=== PATIENT | male | born 1970 | race Caucasian/White ===

== ENCOUNTER 2019-12-20 11:57 | Observation (INO) | payer OTHER ==
[2019-12-20] MEDS ORDERED: LORAZEPAM INJ 2 MG/1 ML VIAL IV ONE ×3 (12:31→12:46)
[2019-12-20] MEDS ORDERED: LORAZEPAM INJ 2 MG/1 ML VIAL IM ONE ×3 (12:37→13:10)
[2019-12-20] MEDS ORDERED: LEVETIRACETAM 1000 MG/NACL-ISO 1,000 MG/100 ML RTUPB IV ONE (12:46)
[2019-12-20] MEDS ORDERED: HALOPERIDOL LACTATE INJ 5 MG/1 ML VIAL IV ONE (12:49)
[2019-12-20] MEDS ORDERED: HALOPERIDOL LACTATE INJ 5 MG/1 ML VIAL ONE (12:50)
--- NOTE | 2019-12-20 13:05 | ER Document Report ---
ED Medical Screen (RME) - General Chief Complaint: Probable Seizure Stated Complaint: POSSIBLE SEIZURES Time Seen by Provider: 12/20/19 12:16 TRAVEL OUTSIDE OF THE [place] IN LAST 30 DAYS: No - HPI Notes: 12/20/19 49-year-old male to the emergency department with with complaints of possible seizures this morning. She states that about 830 this morning the patient began to groan in pain and then all of a sudden he started jerking throughout his entire body. She states that this lasted for several minutes and then he began to snore quite loudly and she tried to arouse him without success. She states that after that she called the medics and he was very combative and would not go with them. She states about 30 minutes after they left the patient had a second seizure. She states that he does not have history of seizure. He does have a chronic demyelinating disease for which he is seeing neurology. He is she states that he is not on any current new medications. She states that he has never had a seizure disorder in the past. She states that he does have moments of "spacing out" and that is been going on for the past year. Patient states he does not really remember anything that happened this morning and thought maybe he was just having a bad dream. He denies any chest pain, s hortness of breath, abdominal pain. I was informed that patient would be going to bed 9. I was wheeling the patient to bed 9 when he started to have an episode of what looked like an absence seizure and as soon as we got into the room he had a full tonic-clonic seizure. I requested a verbal order of 1 mg of Ativan which was given to the patient I am in the right deltoid muscle. Patient calmed down briefly enough for myself and nursing staff to transfer the patient to the bed and try to establish IV access. He began to have what looked like another episode of a seizure and a second milligram of Ativan was verbally ordered and given in the left thigh. At this point Dr. Stephens my ER attending joined us in the room and assumed care. I ordered 1/3 mg of Ativan and also 5 mg of Haldol per Dr. Stephens. We went ahead and decided to load the patient with 1 g of Keppra as well. Patient continues to be combative. Dr. Angelo to assume care at this point. - Related Data Allergies/Adverse Reactions: No Known Allergies Allergy (Unverified 12/20/19 12:15) Home Medications: Azathiprine, Prednison, Adrenaline, Diphenhydramine Physical Exam - Vital signs Vitals: Temp Pulse Resp BP Pulse Ox 97.6 F 86 18 153/73 H 96 12/20/19 12:14 12/20/19 12:14 12/20/19 12:14 12/20/19 12:14 12/20/19 12:14 Course - Vital Signs Vital signs: Temp Pulse Resp BP Pulse Ox 97.6 F 86 18 153/73 H 96 12/20/19 12:14 12/20/19 12:14 12/20/19 12:14 12/20/19 12:14 12/20/19 12:14 - Laboratory Result Diagrams: 12/20/19 12:40 12/20/19 12:40
[2019-12-20 13:09] LABS: HEMATOCRIT 45.9 % (37.9-51.0); HEMOGLOBIN 15.1 g/dL (13.5-17.0); MEAN CORPUSCULAR HEMOGLOBIN 31.9 pg (27.0-33.4); MEAN CORPUSCULAR VOLUME 97 fl (80-97); PLATELET COUNT 302 10^3/uL (150-450); RED BLOOD COUNT 4.74 10^6/uL (4.35-5.55); RED CELL DISTRIBUTION WIDTH 15.9 % (11.5-14.0); WHITE BLOOD COUNT 21.5 10^3/uL (4.0-10.5)
[2019-12-20 13:14] LABS: ALBUMIN 4.9 g/dL (3.5-5.0); ALKALINE PHOSPHATASE 95 U/L (38-126); ASPARTATE AMINO TRANSFERASE 53 U/L (17-59); BILIRUBIN,DIRECT 0.2 mg/dL (0.0-0.4); BILIRUBIN,TOTAL 0.6 mg/dL (0.2-1.3); BLOOD UREA NITROGEN 19 mg/dL (7-20); CALCIUM 10.2 mg/dL (8.4-10.2); GLUCOSE 117 mg/dL (75-110); POTASSIUM 3.3 mmol/L (3.6-5.0); TOTAL PROTEIN 8.8 g/dL (6.3-8.2)
[2019-12-20 13:19] LABS: CARBON DIOXIDE 18 mmol/L (22-30); CHLORIDE 94 mmol/L (98-107)
[2019-12-20 13:30] LABS: ANION GAP 27 (5-19)
[2019-12-20 13:46] LABS: ABSOLUTE LYMPHOCYTES# (MANUAL) 5.6 10^3/uL (0.5-4.7); ABSOLUTE MONOCYTES # (MANUAL) 1.5 10^3/uL (0.1-1.4); BASOPHILS % (MANUAL) 0 % (0-2); EOSINOPHILS % (MANUAL) 3 % (0-6); LYMPHOCYTES % (MANUAL) 26 % (13-45); MONOCYTES % (MANUAL) 7 % (3-13); NUCLEATED RED BLOOD CELLS 1 /100 WBC (0); SEGMENTED NEUTROPHILS % (MAN) 64 % (42-78); TOTAL CELLS COUNTED 100
[2019-12-20 13:47] LABS: ANISOCYTOSIS 1+; PLATELET CLUMPS PRESENT; PLATELET COMMENT ADEQUATE
[2019-12-20 14:48] LABS: APPEARANCE,URINE CLEAR; BILIRUBIN,URINE NEGATIVE (NEGATIVE); COLOR,URINE STRAW; GLUCOSE, URINE NEGATIVE (NEGATIVE); KETONES,URINE NEGATIVE (NEGATIVE); PROTEIN,URINE NEGATIVE (NEGATIVE); URINE SPECIFIC GRAVITY 1.013; UROBILINOGEN,URINE NEGATIVE mg/dL (<2.0)
[2019-12-20 14:54] LABS: URINE AMPHETAMINES SCREEN NEGATIVE; URINE BARBITURATES SCREEN NEGATIVE; URINE BENZODIAZEPINES SCREEN NEGATIVE; URINE COCAINE SCREEN NEGATIVE; URINE METHADONE SCREEN NEGATIVE; URINE PHENCYCLIDINE SCREEN NEGATIVE
[2019-12-20 15:01] LABS: URINE MARIJUANA (THC) SCREEN UNCONFIRMED POSITIVE
--- NOTE | 2019-12-20 15:01 | RADIOLOGY REPORT (SQ) ---
EXAM DESCRIPTION: CT HEAD WITHOUT COMPLETED DATE/TIME: 12/20/2019 2:46 pm REASON FOR STUDY: Seizure COMPARISON: None. TECHNIQUE: Axial images acquired through the brain without intravenous contrast. Images reviewed wi th bone, brain and subdural windows. Additional sagittal and coronal reconstructions were generated. Images stored on PACS. All CT scanners at this facility use dose modulation, iterative reconstruction, and/or weight based d osing when appropriate to reduce radiation dose to as low as reasonably achievable (ALARA). [facility]: Dose Right [facility]: CareDose [facility]: Dose Right [facility]: Teradose 4D [facility]: [employer]a RADIATION DOSE: CT Rad equipment meets quality standard of care and radiation dose reduction techniq ues were employed. CTDIvol: 53.2 mGy. DLP: 1017 mGy-cm. mGy. LIMITATIONS: None. FINDINGS: VENTRICLES: Normal size and contour. CEREBRUM: No masses. No hemorrhage. No midline shift. No evidence for acute infarction. Normal gra y/white matter differentiation. No areas of low density in the white matter. Empty sella. CEREBELLUM: No masses. No hemorrhage. No alteration of density. No evidence for acute infarction. EXTRAAXIAL SPACES: No fluid collections. No masses. ORBITS AND GLOBE: No intra- or extraconal masses. Normal contour of globe without masses. CALVARIUM: No fracture. PARANASAL SINUSES: No fluid or mucosal thickening. SOFT TISSUES: Small right occipital scalp contusion. OTHER: No other significant finding. IMPRESSION: Small right occipital scalp contusion. No acute intracranial findings or calvarial frac ture. EVIDENCE OF ACUTE STROKE: NO. COMMENT: Quality ID # [id number]: Final reports with documentation of one or more dose reduction techniques (e.g., Automated exposure control, adjustment of the mA and/or kV according to patient size, use of iterative reconstruction technique) TECHNICAL DOCUMENTATION: JOB ID: [id number] [employer]- All Rights Reserved Reading location - IP/workstation name: [email or web address]
--- NOTE | 2019-12-20 15:01 | RADIOLOGY REPORT (SQ) ---
EXAM DESCRIPTION: CHEST SINGLE VIEW COMPLETED DATE/TIME: 12/20/2019 2:46 pm REASON FOR STUDY: Seizure COMPARISON: None. EXAM PARAMETERS: NUMBER OF VIEWS: One view. TECHNIQUE: Single frontal radiographic view of the chest acquired. RADIATION DOSE: NA LIMITATIONS: None. FINDINGS: LUNGS AND PLEURA: No opacities, masses or pneumothorax. No pleural effusion. MEDIASTINUM AND HILAR STRUCTURES: No masses. Contour normal. HEART AND VASCULAR STRUCTURES: Heart normal in size. Normal vasculature. BONES: No acute findings. HARDWARE: None in the chest. OTHER: No other significant finding. IMPRESSION: No acute pulmonary findings. TECHNICAL DOCUMENTATION: JOB ID: [id number] [employer]- All Rights Reserved Reading location - IP/workstation name: [email or web address]
--- NOTE | 2019-12-20 15:42 | ER Document Report ---
ED Seizure - General Chief Complaint: Probable Seizure Stated Complaint: POSSIBLE SEIZURES Time Seen by Provider: 12/20/19 12:16 Notes: 49-year-old man presents to the emergency department with a history of seizure activity which began this morning. Apparently 2 episodes of seizure-like activity at home this morning and while in the emergency department a prolonged episode treated with a total of 3 mg of Lorazepam. Post seizure patient became very combative and unable to follow commands. Lorazepam dose was repeated and 5 mg of Haldol IV given. Patient continued to be combative had to be restrained by the staff in order to maintain his IVs and to keep him from injuring himself. Patient was placed in four-point locked restraint. Later he is improved and was taken out of the restraints, CT scan of the head was performed which rev ealed no intracranial lesion or hemorrhage. - Related Data Allergies/Adverse Reactions: No Known Allergies Allergy (Unverified 12/20/19 12:15) Home Medications: Azathiprine, Prednison, Adrenaline, Diphenhydramine Past Medical History - Social History Smoking Status: Unknown if Ever Smoked Family History: Reviewed & Not Pertinent Patient has suicidal ideation: No Patient has homicidal ideation: No Review of Systems - Review of Systems Notes: Constitutional: Negative for fever. HENT: Negative for sore throat. Eyes: Negative for visual changes. Cardiovascular: Negative for chest pain. Respiratory: Negative for shortness of breath. Gastrointestinal: Negative for abdominal pain, vomiting or diarrhea. Genitourinary: Negative for dysuria. Musculoskeletal: Negative for back pain. Skin: Negative for rash. Neurological: + Seizure, + post ictal combativeness 10 point ROS negative except as marked above and in HPI. Physical Exam - Vital signs Vitals: Temp Pulse Resp BP Pulse Ox 97.6 F 86 18 153/73 H 96 12/20/19 12:14 12/20/19 12:14 12/20/19 12:14 12/20/19 12:14 12/20/19 12:14 - Notes Notes: PHYSICAL EXAMINATION: Physical Exam: General: Well-nourished well-developed 49-year-old man in no acute distress HEENT: NC/AT, pupils equal round and reactive to light, MM moist,nares clear, oropharynx clear Neck: supple, no adenopathy, no masses. Lungs: clear, no wheezing, no rales no rhonchi CVS: Regular rate and rhythm no murmur gallop or rub Abdomen: Soft active nontender, no masses, no hepatosplenomegaly Ext: No edema clubbing or cyanosis. Neuro: Alert and responsive, moving all 4 extremities on command, cranial nerves intact. Speech normal (Post seizure) Skin: Intact no open lesions, no rash PSYCH: Normal mood, normal affect. Course - Re-evaluation Re-evalutation: 12/20/19 15:42 Patient was treated and IV Keppra begun at 1 g, new onset seizures versus escalating seizures given a history of "zoning out" episodes. I have discussed the findings with the hospitalist, Dr. Motta, he will admit the patient to the hospital for further evaluation and treatment. I discussed being admitted to the hospital with the patient's , she states that she would prefer to stay at [facility] and is in agreement with the plan. - Vital Signs Vital signs: Temp Pulse Resp BP Pulse Ox 97.7 F 78 18 153/73 H 100 12/23/19 10:44 12/23/19 10:44 12/23/19 10:44 12/23/19 10:44 12/23/19 10:44 - Laboratory Result Diagrams: 12/23/19 05:33 12/23/19 05:33 Laboratory results interpreted by me: 12/20/19 12/20/19 12/20/19 12:40 12:40 12:40 WBC 21.5 H RDW 15.9 H Abs Neuts (Manual) 13.8 H Abs Lymphs (Manual) 5.6 H Abs Monocytes (Manual) 1.5 H Potassium 3.3 L Chloride 94 L Carbon Dioxide 18 L Anion Gap 27 H Glucose 117 H Total Protein 8.8 H TSH Prolactin 28.6 H 12/20/19 12:40 WBC RDW Abs Neuts (Manual) Abs Lymphs (Manual) Abs Monocytes (Manual) Potassium Chloride Carbon Dioxide Anion Gap Glucose Total Protein TSH 15.10 H Prolactin Critical Care Note - Critical Care Note Total time excluding time spent on procedures (mins): 60 - Critical care time spent obtaining history from patient or surrogate, discussions with consultants, development of treatment plan with patient or surrogate, evaluation of patient's response to treatment, examination of patient, ordering and performing treatments and interventions, ordering and review of laboratory studies, re- evaluation of patient's condition, ordering and review of radiographic studies and review of old charts Discharge - Discharge Clinical Impression: New onset seizure, Demyelinating disease, CIDP (chronic inflammatory demyelinating polyneuropathy) HTN (hypertension) Qualifiers: Hypertension type: essential hypertension Qualified Code(s): I10 - Essential (primary) hypertension Condition: Stable Disposition: ADMITTED INPATIENT Admitting Provider: Ángela (Hospitalist) - Seizure disorder IMCU on telemetry Unit Admitted: IMCU - thank you
--- NOTE | 2019-12-20 16:00 | EKG REPORT ---
SEVERITY:- OTHERWISE NORMAL ECG - SINUS TACHYCARDIA : Confirmed by: Jorge Herr MD 20-Dec-2019 15:59:43
[2019-12-20] MEDS ORDERED: LORAZEPAM INJ 2 MG/1 ML VIAL IV PRN (16:10)
[2019-12-20] MEDS: POTASSI CL 20 MEQ/50 ML RIDER 20 MEQ/50 ML RTUPB IV SCH ×2 (16:41→18:12)
--- NOTE | 2019-12-20 17:05 | PDOC H&P ---
History of Present Illness Admission Date/PCP: 12/20/19 16:11 Patient complains of: Seizures History of Present Illness: TOY WILLIAMSON is a 49 year old male who has history of hypertension, hypothyroidism, CIDP who follows with his neurologist outpatient. Patient presented with tonic-clonic seizure that occurred at home. In the emergency room he had another recurrence of tonic-clonic seizure. After that he was delirious and agitated and required restraint. He received 3 mg total of IV Ativan and 5 mg of IV Haldol. He also received 1000 mg of Keppra IV. He is currently awake but slightly sedated. In no acute respiratory distress. Reports of incontinence or tongue biting or head trauma. Patient does not recall the events. Past Medical History Cardiac Medical History: Reports: Hypertension Neurological History Note: CIDP Endocrine Medical History: Reports: Hypothyroidism Social History Smoking Status: Unknown if Ever Smoked Family History Family History: None Parental Family History Reviewed: Yes Children Family History Reviewed: Yes Sibling(s) Family History Reviewed.: Yes Medication/Allergy Allergies/Adverse Reactions: No Known Allergies Allergy (Unverified 12/20/19 12:15) Physical Exam Vital Signs: Temp Pulse Resp BP Pulse Ox 99.0 F 86 16 123/82 91 L 12/20/19 14:05 12/20/19 12:14 12/20/19 16:01 12/20/19 16:01 12/20/19 16:01 Intake & Output 12/19/19 12/20/19 12/21/19 06:59 06:59 06:59 Intake Total 100 Balance 100 Weight 218 lb 11.177 oz Exam: Patient is no acute distress Alert oriented to time place person No anxiety or depression Head: atraumatic normocephalic Pupils: are equal reactive Neck: is supple and trachea is central no lymphadenopathy No pharyngeal erythema or exudates Heart: Regular rate and rhythm, no peripheral edema Lungs: clear to auscultation, no respiratory distress Abdomen: nontender nondistended Neurological exam: Slightly sedated. No focal deficits. Musculoskeletal: No joint swelling or effusion chronic lower back pain and tenderness No suicidal or homicidal ideation Results Laboratory Results: 12/20/19 12:40 12/20/19 12:40 12/20/19 12/20/19 12/20/19 12:40 12:40 14:03 WBC 21.5 H RBC 4.74 Hgb 15.1 Hct 45.9 MCV 97 MCH 31.9 MCHC 33.0 RDW 15.9 H Plt Count 302 Seg Neutrophils % Not Reportable Sodium 139.3 Potassium 3.3 L Chloride 94 L Carbon Dioxide 18 L Anion Gap 27 H BUN 19 Creatinine 1.19 Est GFR ( Amer) > 60 Glucose 117 H Calcium 10.2 Magnesium 2.3 Total Bilirubin 0.6 AST 53 Alkaline Phosphatase 95 Total Protein 8.8 H Albumin 4.9 Urine Color STRAW Urine Appearance CLEAR Urine pH 6.0 Ur Specific [place] 1.013 Urine Protein NEGATIVE Urine Glucose (UA) NEGATIVE Urine Ketones NEGATIVE Urine Blood NEGATIVE Urine RBC (Auto) 0 12/20/19 12:40 Troponin I 0.036 Impressions: Head CT 12/20/19 14:30 IMPRESSION: Small right occipital scalp contusion. No acute intracranial findings or calvarial fracture. EVIDENCE OF ACUTE STROKE: NO. Chest X-Ray 12/20/19 14:31 IMPRESSION: No acute pulmonary findings. Assessment and Plan - Diagnosis (1) New onset seizure Is this a current diagnosis for this admission?: Yes Plan: Admit for observation. Check EEG. MRI of the brain. Alcohol levels. Prolactin levels. start keppra. prn ativan. (2) HTN (hypertension) Is this a current diagnosis for this admission?: Yes Plan: resume home meds. monitor BP (3) Hypothyroidism Is this a current diagnosis for this admission?: Yes Plan: resume home meds. check TSH (4) CIDP (chronic inflammatory demyelinating polyneuropathy) Is this a current diagnosis for this admission?: Yes Plan: follows up with neurology outpatient
[2019-12-20] MEDS: NORMAL SALINE 1000 ML 1,000 ML IV PRN (18:12)
[2019-12-20] MEDS: LEVETIRACETAM 500 MG TABLET PO SCH (18:12)
[2019-12-21] MEDS: ACETAMINOPHEN 325 MG TABLET PO PRN ×2 (03:45→09:49)
[2019-12-21] MEDS: NORMAL SALINE 1000 ML 1,000 ML IV PRN ×2 (04:13→17:04)
[2019-12-21 06:58] LABS: ANION GAP 7 (5-19); BLOOD UREA NITROGEN 15 mg/dL (7-20); CALCIUM 8.7 mg/dL (8.4-10.2); CARBON DIOXIDE 27 mmol/L (22-30); CHLORIDE 93 mmol/L (98-107); GLUCOSE 102 mg/dL (75-110); POTASSIUM 3.4 mmol/L (3.6-5.0)
[2019-12-21 08:47] LABS: HEMATOCRIT 37.1 % (37.9-51.0); MEAN CORPUSCULAR HEMOGLOBIN 32.2 pg (27.0-33.4); MEAN CORPUSCULAR HGB CONC 35.1 g/dL (32.0-36.0); PLATELET COUNT 181 10^3/uL (150-450); RED BLOOD COUNT 4.03 10^6/uL (4.35-5.55); RED CELL DISTRIBUTION WIDTH 15.8 % (11.5-14.0); WHITE BLOOD COUNT 10.1 10^3/uL (4.0-10.5)
[2019-12-21 08:52] LABS: MEAN CORPUSCULAR VOLUME 92 fl (80-97)
[2019-12-21] MEDS: LEVETIRACETAM 500 MG TABLET PO SCH ×2 (09:49→17:04)
[2019-12-21] MEDS ORDERED: ONDANSETRON HCL INJ/PF 4 MG/2 ML SDV IV PRN (11:00)
[2019-12-21] MEDS ORDERED: ALPRAZOLAM 0.25 MG TABLET PO PRN (12:11)
[2019-12-21] MEDS ORDERED: LOSARTAN PO SCH (12:16)
[2019-12-21] MEDS ORDERED: HYDROCHLOROTHIAZIDE PO SCH (12:16)
[2019-12-21] MEDS ORDERED: [UNRECOGNIZED DRUG - OTHER] PO SCH (12:16)
--- NOTE | 2019-12-21 12:20 | PDOC PROGRESS REPORT ---
Subjective Progress Note for:: 12/21/19 Subjective:: 12/21/2019: Patient was seen and examined. Has not had any seizures since admission. He is awake and alert and oriented. Slightly sleepy probably from Keppra. MRI is still pending. Reason For Visit: SEIZURE Physical Exam Vital Signs: Temp Pulse Resp BP Pulse Ox 97.6 F 79 17 142/92 H 97 12/21/19 07:07 12/21/19 07:07 12/21/19 07:07 12/21/19 07:07 12/21/19 07:07 Intake & Output 12/20/19 12/21/19 12/22/19 06:59 06:59 06:59 Intake Total 1625 Output Total 100 Balance 1525 Weight 218 lb 11.177 oz Exam: Patient is no acute distress Alert oriented to time place person No anxiety or depression Head: atraumatic normocephalic Pupils: are equal reactive Neck: is supple and trachea is central no lymphadenopathy No pharyngeal erythema or exudates Heart: Regular rate and rhythm, no peripheral edema Lungs: clear to auscultation, no respiratory distress Abdomen: nontender nondistended Neurological exam: Slightly sedated. No focal deficits. Musculoskeletal: No joint swelling or effusion chronic lower back pain and tenderness No suicidal or homicidal ideation Results Laboratory Results: 12/21/19 08:30 12/21/19 06:00 12/20/19 12/20/19 12/20/19 12:40 12:40 12:40 WBC 21.5 H RBC 4.74 Hgb 15.1 Hct 45.9 MCV 97 MCH 31.9 MCHC 33.0 RDW 15.9 H Plt Count 302 Seg Neutrophils % Not Reportable Sodium 139.3 Cancelled Potassium 3.3 L Cancelled Chloride 94 L Cancelled Carbon Dioxide 18 L Cancelled Anion Gap 27 H Cancelled BUN 19 Cancelled Creatinine 1.19 Cancelled Est GFR ( Amer) > 60 Cancelled Est GFR (Non-Af Amer) Cancelled Glucose 117 H Cancelled Serum Osmolality Calcium 10.2 Cancelled Magnesium 2.3 Total Bilirubin 0.6 AST 53 Alkaline Phosphatase 95 Total Protein 8.8 H Albumin 4.9 TSH Urine Color Urine Appearance Urine pH Ur Specific [place] Urine Protein Urine Glucose (UA) Urine Ketones Urine Blood Urine RBC (Auto) Urine Osmolality 12/20/19 12/20/19 12/20/19 12:40 14:03 14:03 WBC RBC Hgb Hct MCV MCH MCHC RDW Plt Count Seg Neutrophils % Sodium Potassium Chloride Carbon Dioxide Anion Gap BUN Creatinine Est GFR ( Amer) Est GFR (Non-Af Amer) Glucose Serum Osmolality Calcium Magnesium Total Bilirubin AST Alkaline Phosphatase Total Protein Albumin TSH 15.10 H Urine Color STRAW Urine Appearance CLEAR Urine pH 6.0 Ur Specific [place] 1.013 Urine Protein NEGATIVE Urine Glucose (UA) NEGATIVE Urine Ketones NEGATIVE Urine Blood NEGATIVE Urine RBC (Auto) 0 Urine Osmolality 626 12/21/19 12/21/19 12/21/19 06:00 06:00 06:00 WBC Cancelled RBC Cancelled Hgb Cancelled Hct Cancelled MCV Cancelled MCH Cancelled MCHC Cancelled RDW Cancelled Plt Count Cancelled Seg Neutrophils % Sodium 127.1 L Potassium 3.4 L Chloride 93 L Carbon Dioxide 27 Anion Gap 7 BUN 15 Creatinine 0.71 Est GFR ( Amer) > 60 Est GFR (Non-Af Amer) Glucose 102 Serum Osmolality 261 L Calcium 8.7 Magnesium Total Bilirubin AST Alkaline Phosphatase Total Protein Albumin TSH Urine Color Urine Appearance Urine pH Ur Specific [place] Urine Protein Urine Glucose (UA) Urine Ketones Urine Blood Urine RBC (Auto) Urine Osmolality 12/21/19 08:30 WBC 10.1 RBC 4.03 L Hgb 13.0 L D Hct 37.1 L MCV 92 D MCH 32.2 MCHC 35.1 RDW 15.8 H Plt Count 181 Seg Neutrophils % Sodium Potassium Chloride Carbon Dioxide Anion Gap BUN Creatinine Est GFR ( Amer) Est GFR (Non-Af Amer) Glucose Serum Osmolality Calcium Magnesium Total Bilirubin AST Alkaline Phosphatase Total Protein Albumin TSH Urine Color Urine Appearance Urine pH Ur Specific [place] Urine Protein Urine Glucose (UA) Urine Ketones Urine Blood Urine RBC (Auto) Urine Osmolality 12/20/19 12:40 Troponin I 0.036 Impressions: Head CT 12/20/19 14:30 IMPRESSION: Small right occipital scalp contusion. No acute intracranial findings or calvarial fracture. EVIDENCE OF ACUTE STROKE: NO. Chest X-Ray 12/20/19 14:31 IMPRESSION: No acute pulmonary findings. Assessment and Plan - Diagnosis (1) New onset seizure Is this a current diagnosis for this admission?: Yes Plan: Apparently we cannot do EEG until December. Pending MRI of the brain. Continue Keppra. prn ativan. (2) HTN (hypertension) Is this a current diagnosis for this admission?: Yes Plan: resume home meds. monitor BP (3) Hypothyroidism Is this a current diagnosis for this admission?: Yes Plan: TSH 15.1. Will increase levothyroxine dose. (4) CIDP (chronic inflammatory demyelinating polyneuropathy) Is this a current diagnosis for this admission?: Yes Plan: follows up with neurology outpatient. Continue prednisone. Receives IVIG outpatient.
[2019-12-21] MEDS: AZATHIOPRINE 50 MG TABLET PO SCH (13:04)
[2019-12-21] MEDS: PREDNISONE 10 MG TABLET PO SCH (13:04)
[2019-12-21] MEDS: AMLODIPINE BESYLATE 5 MG TABLET PO SCH (13:05)
[2019-12-21] MEDS: LEVOTHYROXINE SODIUM 0.1 MG TABLET PO SCH (13:05)
--- NOTE | 2019-12-21 14:42 | RADIOLOGY REPORT (SQ) ---
EXAM DESCRIPTION: MRI HEAD COMBO COMPLETED DATE/TIME: 12/21/2019 2:22 pm REASON FOR STUDY: seizure COMPARISON: CT brain dated 12/20/2019 TECHNIQUE: Multiplanar imaging includes noncontrasted T1, T2, FLAIR, diffusion with ADC map and post gadolinium contrast T1 sequences. Images stored on PACS. CONTRAST TYPE AND DOSE: 20 mL Dotarem. RENAL FUNCTION: Not indicated. ACR Type II contrast agent associated with few, if any, unconfounded cases of NSF LIMITATIONS: None. FINDINGS: ANATOMY: No anomalies. Normal vascular flow voids. Pituitary fossa normal. CSF SPACES: Normal in size and contour. No hemorrhage. CEREBRUM: Sulci and gyri normal in size and contour. Normal white matter signal on FLAIR imaging. No evidence of hemorrhage, mass, or extraaxial fluid collection. No abnormal enhancement post contrast. POSTERIOR FOSSA: No signal alteration. No hemorrhage. No edema, masses, or mass effect. Internal margy tory canals, cerebellopontine angles, mastoids normal. No enhancing lesions. No abnormal enhancement post contrast. DIFFUSION IMAGING: Negative for acute or subacute infarction. ORBITS: No masses. Globes normal. PARANASAL SINUSES: No fluid levels. Mucosa normal. OTHER: No other significant finding. IMPRESSION: NORMAL MRI OF THE BRAIN WITHOUT AND WITH INTRAVENOUS GADOLINIUM CONTRAST. EVIDENCE OF ACUTE STROKE: NO. TECHNICAL DOCUMENTATION: JOB ID: [id number] [employer]- All Rights Reserved Reading location - IP/workstation name: [email or web address]
[2019-12-22] MEDS ORDERED: LEVOTHYROXINE SODIUM 0.1 MG TABLET PO SCH ×2 (06:00)
[2019-12-22] MEDS: LEVOTHYROXINE SODIUM 0.1 MG TABLET PO SCH (06:44)
[2019-12-22 09:46] LABS: ANION GAP 10 (5-19); BLOOD UREA NITROGEN 9 mg/dL (7-20); CALCIUM 9.3 mg/dL (8.4-10.2); CARBON DIOXIDE 25 mmol/L (22-30); CHLORIDE 97 mmol/L (98-107); GLUCOSE 136 mg/dL (75-110); POTASSIUM 3.7 mmol/L (3.6-5.0)
[2019-12-22] MEDS ORDERED: AZATHIOPRINE 50 MG TABLET PO SCH (10:00)
[2019-12-22] MEDS ORDERED: PREDNISONE 10 MG TABLET PO SCH (10:00)
[2019-12-22] MEDS ORDERED: LOSARTAN PO SCH (10:00)
[2019-12-22] MEDS ORDERED: AMLODIPINE BESYLATE 5 MG TABLET PO SCH (10:00)
[2019-12-22] MEDS ORDERED: HYDROCHLOROTHIAZIDE PO SCH (10:00)
[2019-12-22] MEDS ORDERED: [UNRECOGNIZED DRUG - OTHER] PO SCH (10:00)
[2019-12-22] MEDS: AMLODIPINE BESYLATE 5 MG TABLET PO SCH (10:14)
[2019-12-22] MEDS: PREDNISONE 10 MG TABLET PO SCH (10:14)
[2019-12-22] MEDS: LEVETIRACETAM 500 MG TABLET PO SCH ×2 (10:15→18:53)
[2019-12-22] MEDS: LOSARTAN POTASSIUM 50 MG TABLET PO SCH (10:15)
[2019-12-22] MEDS: AZATHIOPRINE 50 MG TABLET PO SCH (10:20)
--- NOTE | 2019-12-22 14:57 | PDOC PROGRESS REPORT ---
Subjective Progress Note for:: 12/22/19 Subjective:: TOY WILLIAMSON is a 49 year old male who has history of hypertension, hypothyroidism, CIDP who follows with his neurologist outpatient. Patient presented with tonic-clonic seizure that occurred at home. In the emergency room he had another recurrence of tonic-clonic seizure. After that he was delirious and agitated and required restraint. He received 3 mg total of IV Ativan and 5 mg of IV Haldol. He also received 1000 mg of Keppra IV. He is currently awake but slightly sedated. In no acute respiratory distress. Reports of incontinence or tongue biting or head trauma. Patient does not recall the events. 12/14/2019. No acute events overnight. Patient has not had any recurrence of his seizures since admission. Complaining of right upper and left lower extremity chronic persistent numbness and weakness, denies any fever, chills, nausea, vomiting, diarrhea, constipation or any urinary symptoms. P.o. tolerant. Having normal bowel and bladder movement. Reason For Visit: SEIZURE Physical Exam Vital Signs: Temp Pulse Resp BP Pulse Ox 97.5 F 73 16 136/82 H 98 12/22/19 11:50 12/22/19 11:50 12/22/19 11:50 12/22/19 11:50 12/22/19 11:50 Intake & Output 12/21/19 12/22/19 12/23/19 06:59 06:59 06:59 Intake Total 1625 1300 Output Total 100 1500 Balance 1525 -200 Weight 99.2 kg 100.8 kg General appearance: PRESENT: no acute distress, well-developed, well-nourished Head exam: PRESENT: atraumatic, normocephalic Respiratory exam: PRESENT: clear to auscultation marianne. ABSENT: rales, rhonchi, wheezes GI/Abdominal exam: PRESENT: normal bowel sounds, soft. ABSENT: distended, guarding, mass, organolmegaly, rebound, tenderness Neurological exam: PRESENT: alert, awake, oriented to person, oriented to place, oriented to time, oriented to situation, CN II-XII grossly intact, motor sensory deficit - Right upper and left lower extremity strength 3/4. Results Laboratory Results: 12/21/19 08:30 12/22/19 09:04 12/22/19 09:04 Sodium 131.8 L Potassium 3.7 Chloride 97 L Carbon Dioxide 25 Anion Gap 10 BUN 9 Creatinine 0.68 Est GFR ( Amer) > 60 Glucose 136 H Calcium 9.3 12/20/19 12:40 Troponin I 0.036 Impressions: Head CT 12/20/19 14:30 IMPRESSION: Small right occipital scalp contusion. No acute intracranial findings or calvarial fracture. EVIDENCE OF ACUTE STROKE: NO. Chest X-Ray 12/20/19 14:31 IMPRESSION: No acute pulmonary findings. Head MRI 12/21/19 00:00 IMPRESSION: NORMAL MRI OF THE BRAIN WITHOUT AND WITH INTRAVENOUS GADOLINIUM CONTRAST. EVIDENCE OF ACUTE STROKE: NO. Assessment and Plan - Diagnosis (1) New onset seizure Is this a current diagnosis for this admission?: Yes Plan: Not sure if this was due to electrolyte imbalance caused by HCTZ intake. MRI negative for acute any acute changes. No EEG available until December 2019. No seizure recurrence. Continue Keppra, monitor electrolytes and replace as needed continue seizure, fall and aspiration precaution. (2) CIDP (chronic inflammatory demyelinating polyneuropathy) Is this a current diagnosis for this admission?: Yes Plan: On chronic p.o. prednisone and IVIG q. 4 weeks. Followed by neurologist as outpatient. Complaining of persistent right upper and left lower extremity numbness and weakness. Continue IVIG, continue steroids, continue seizure, fall and aspiration precautions, outpatient neurology follow-up. (3) HTN (hypertension) Is this a current diagnosis for this admission?: Yes Plan: Normotensive. Euvolemic. Takes HCTZ losartan and amlodipine at home. DC HCTZ due to hyponatremia. Increase losartan 100 mg p.o. daily. Continue home dose of amlodipine. (4) Hypothyroidism Is this a current diagnosis for this admission?: Yes Plan: TSH 15.1. Will increase levothyroxine dose. (5) Hyponatremia Is this a current diagnosis for this admission?: Yes Plan: This is likely due to HCTZ intake. Urine sodium 242, urine osmolarity 626. DC HCTZ. Continue NS IV fluids, BMP daily.
[2019-12-22] MEDS ORDERED: IMMUNE GLOB,GAM CAPRYLATE(IGG) 20 GM in CONTAINER,EMPTY 1 EACH IV PRN (15:29)
[2019-12-22] MEDS: ACETAMINOPHEN 325 MG TABLET PO PRN (22:14)
[2019-12-23] MEDS: LEVOTHYROXINE SODIUM 0.1 MG TABLET PO SCH (05:34)
[2019-12-23 06:21] LABS: ABSOLUTE EOSINOPHILS # (AUTO) 0.1 10^3/uL (0.0-0.6); ABSOLUTE LYMPHOCYTES (AUTO) 1.3 10^3/uL (0.5-4.7); ABSOLUTE MONOCYTES (AUTO) 0.7 10^3/uL (0.1-1.4); ABSOLUTE NEUT (AUTO) 5.8 10^3/uL (1.7-8.2); BASOPHILS % (AUTO) 0.5 % (0-2); EOSINOPHILS % (AUTO) 0.7 % (0-6); HEMOGLOBIN 13.2 g/dL (13.5-17.0); LYMPHOCYTES % (AUTO) 16.9 % (13-45); MEAN CORPUSCULAR HEMOGLOBIN 32.7 pg (27.0-33.4); MEAN CORPUSCULAR HGB CONC 35.6 g/dL (32.0-36.0); MEAN CORPUSCULAR VOLUME 92 fl (80-97); PLATELET COUNT 205 10^3/uL (150-450); RED BLOOD COUNT 4.02 10^6/uL (4.35-5.55); RED CELL DISTRIBUTION WIDTH 15.7 % (11.5-14.0); SEGMENTED NEUTROPHILS % (AUTO) 72.9 % (42-78); TOTAL CELLS COUNTED % (AUTO) 100 %
[2019-12-23 06:47] LABS: ALBUMIN 3.6 g/dL (3.5-5.0); ALKALINE PHOSPHATASE 65 U/L (38-126); ANION GAP 9 (5-19); ASPARTATE AMINO TRANSFERASE 41 U/L (17-59); BILIRUBIN,DIRECT 0.4 mg/dL (0.0-0.4); BILIRUBIN,TOTAL 0.6 mg/dL (0.2-1.3); BLOOD UREA NITROGEN 16 mg/dL (7-20); CALCIUM 9.4 mg/dL (8.4-10.2); CARBON DIOXIDE 25 mmol/L (22-30); CHLORIDE 103 mmol/L (98-107); GLUCOSE 122 mg/dL (75-110); POTASSIUM 3.7 mmol/L (3.6-5.0); TOTAL PROTEIN 7.3 g/dL (6.3-8.2)
[2019-12-23 07:00] LABS: FREE T3 2.41 pg/mL (2.77-5.27); FREE T4 (FREE THYROXINE) 0.92 ng/dL (0.78-2.19)
[2019-12-23 07:14] LABS: THYROID STIMULATING HORMONE 5.84 uIU/mL (0.47-4.68)
[2019-12-23] MEDS: LOSARTAN POTASSIUM 50 MG TABLET PO SCH (10:14)
[2019-12-23] MEDS: PREDNISONE 10 MG TABLET PO SCH (10:15)
[2019-12-23] MEDS: AMLODIPINE BESYLATE 5 MG TABLET PO SCH (10:16)
[2019-12-23] MEDS: LEVETIRACETAM 500 MG TABLET PO SCH (10:17)
[2019-12-23] MEDS: AZATHIOPRINE 50 MG TABLET PO SCH (10:19)
[2019-12-23 10:45] VITALS: BP 153/73
--- NOTE | 2019-12-23 16:54 | PDOC DISCHARGE SUMMARY ---
Impression - Admit/DC Date/PCP Admission Date/Primary Care Provider: 12/20/19 16:11 Discharge Date: 12/23/19 - Discharge Diagnosis (1) New onset seizure Is this a current diagnosis for this admission?: Yes (2) CIDP (chronic inflammatory demyelinating polyneuropathy) Is this a current diagnosis for this admission?: Yes (3) HTN (hypertension) Is this a current diagnosis for this admission?: Yes (4) Hypothyroidism Is this a current diagnosis for this admission?: Yes (5) Hyponatremia Is this a current diagnosis for this admission?: Yes - Additional Information Discharge Diet: As Tolerated, Regular Discharge Activity: Activity As Tolerated, Balance Activity w/Rest Referrals: followup, oot [Other] Prescriptions: Losartan Potassium [Cozaar 50 mg Tablet] 50 mg PO BID 30 Days #60 tablet Levetiracetam [Keppra] 1,000 mg PO BID 30 Days #60 tablet Home Medications: Alprazolam [Xanax 0.25 mg Tablet] 0.25 mg PO Q12HP PRN 12/21/19 Amlodipine Besylate [Norvasc 5 mg Tablet] 5 mg PO DAILY 12/21/19 Azathioprine [Imuran 50 mg Tablet] 150 mg PO DAILY 12/21/19 Levothyroxine Sodium [Synthroid 0.1 mg Tablet] 0.1 mg PO Q6AM 12/21/19 Prednisone [Deltasone 10 mg Tablet] 30 mg PO DAILY 12/21/19 Levetiracetam [Keppra] 1,000 mg PO BID 30 Days #60 tablet 12/23/19 Losartan Potassium [Cozaar 50 mg Tablet] 50 mg PO BID 30 Days #60 tablet 12/23/19 History of Present Illiness History of Present Illness: TOY WILLIAMSON is a 49 year old male who has history of hypertension, hypothyroidism, CIDP who follows with his neurologist outpatient. Patient presented with tonic-clonic seizure that occurred at home. In the emergency room he had another recurrence of tonic-clonic seizure. After that he was delirious and agitated and required restraint. He received 3 mg total of IV Ativan and 5 mg of IV Haldol. He also received 1000 mg of Keppra IV. He is currently awake but slightly sedated. In no acute respiratory distress. Reports of incontinence or tongue biting or head trauma. Patient does not recall the events. Hospital Course Hospital Course: (1) New onset seizure Not sure if this was due to electrolyte imbalance caused by HCTZ intake. MRI negative for acute any acute changes. No EEG available until December 2019. No seizure recurrence while inpatient. Was admitted to [facility], tarted on ontinue Keppra, monitor electrolytes and replace as needed continue seizure, fall and aspiration precaution. Discharged on Keppra thousand milligrams p.o. twice daily. Was advised to follow-up with PCP and neurology for stable EEG. Patient was advised on routine CBC and CMP. (2) CIDP (chronic inflammatory demyelinating polyneuropathy) On chronic p.o. prednisone and IVIG q. 4 weeks. Followed by neurologist as outpatient. Complaining of persistent right upper and left lower extremity numbness and weakness. IVIG infusion while inpatient. Continued on steroids and azathioprine. Continue seizure, fall and aspiration precautions, outpatient neurology follow- up. (3) HTN (hypertension) Normotensive. Euvolemic. Takes HCTZ losartan and amlodipine at home. DCd HCTZ due to hyponatremia. Increase losartan 100 mg p.o. daily. Continued home dose of amlodipine. Was discharged on losartan 100 mg p.o. daily and amlodipine 5 mg p.o. daily. (4) Hypothyroidism TSH 15.1. Will increase levothyroxine dose. (5) Hyponatremia Resolved. Sodium 136 at time of discharge. This is likely due to HCTZ intake. Urine sodium 242, urine osmolarity 626. DCd HCTZ. Continued NS IV fluids, BMP daily. Physical Exam Vital Signs: Temp Pulse Resp BP Pulse Ox 97.7 F 78 18 153/73 H 100 12/23/19 10:44 12/23/19 10:44 12/23/19 10:44 12/23/19 10:44 12/23/19 10:44 Intake & Output 12/22/19 12/23/19 12/24/19 06:59 06:59 06:59 Intake Total 1300 1790 Output Total 1500 1600 Balance -200 190 Weight 100.8 kg 99.5 kg General appearance: PRESENT: no acute distress, well-developed, well-nourished Head exam: PRESENT: atraumatic, normocephalic Respiratory exam: PRESENT: clear to auscultation marianne. ABSENT: rales, rhonchi, wheezes Cardiovascular exam: PRESENT: RRR. ABSENT: diastolic murmur, rubs, systolic mu rmur GI/Abdominal exam: PRESENT: normal bowel sounds, soft. ABSENT: distended, guarding, mass, organolmegaly, rebound, tenderness Neurological exam: PRESENT: alert, awake, oriented to person, oriented to place, oriented to time, oriented to situation, CN II-XII grossly intact, motor sensory deficit - Right upper and left lower extremity weakness chronic. Results Laboratory Results: WBC 8.0 10^3/uL (4.0-10.5) 12/23/19 05:33 RBC 4.02 10^6/uL (4.35-5.55) L 12/23/19 05:33 Hgb 13.2 g/dL (13.5-17.0) L 12/23/19 05:33 Hct 37.0 % (37.9-51.0) L 12/23/19 05:33 MCV 92 fl (80-97) 12/23/19 05:33 MCH 32.7 pg (27.0-33.4) 12/23/19 05:33 MCHC 35.6 g/dL (32.0-36.0) 12/23/19 05:33 RDW 15.7 % (11.5-14.0) H 12/23/19 05:33 Plt Count 205 10^3/uL (150-450) 12/23/19 05:33 Lymph % (Auto) 16.9 % (13-45) 12/23/19 05:33 [place] % (Auto) 9.0 % (3-13) 12/23/19 05:33 Eos % (Auto) 0.7 % (0-6) 12/23/19 05:33 Baso % (Auto) 0.5 % (0-2) 12/23/19 05:33 Absolute Neuts (auto) 5.8 10^3/uL (1.7-8.2) 12/23/19 05:33 Absolute Lymphs (auto) 1.3 10^3/uL (0.5-4.7) 12/23/19 05:33 Absolute Monos (auto) 0.7 10^3/uL (0.1-1.4) 12/23/19 05:33 Absolute Eos (auto) 0.1 10^3/uL (0.0-0.6) 12/23/19 05:33 Absolute Basos (auto) 0.0 10^3/uL (0.0-0.2) 12/23/19 05:33 Total Counted 100 12/20/19 12:40 Seg Neutrophils % 72.9 % (42-78) 12/23/19 05:33 Seg Neuts % (Manual) 64 % (42-78) 12/20/19 12:40 Lymphocytes % (Manual) 26 % (13-45) 12/20/19 12:40 Monocytes % (Manual) 7 % (3-13) 12/20/19 12:40 Eosinophils % (Manual) 3 % (0-6) 12/20/19 12:40 Basophils % (Manual) 0 % (0-2) 12/20/19 12:40 Abs Neuts (Manual) 13.8 10^3/uL (1.7-8.2) H 12/20/19 12:40 Abs Lymphs (Manual) 5.6 10^3/uL (0.5-4.7) H 12/20/19 12:40 Abs Monocytes (Manual) 1.5 10^3/uL (0.1-1.4) H 12/20/19 12:40 Absolute Eos (Manual) 0.6 10^3/uL (0.0-0.6) 12/20/19 12:40 Abs Basophils (Manual) 0.0 10^3/uL (0.0-0.2) 12/20/19 12:40 Nucleated RBCs 1 /100 WBC (0) 12/20/19 12:40 Platelet Estimate Cancelled 12/21/19 06:00 Clumped Platelets PRESENT 12/20/19 12:40 Platelet Comment ADEQUATE 12/20/19 12:40 Anisocytosis 1+ 12/20/19 12:40 Sodium 136.7 mmol/L (137-145) L 12/23/19 05:33 Potassium 3.7 mmol/L (3.6-5.0) 12/23/19 05:33 Chloride 103 mmol/L (98-107) 12/23/19 05:33 Carbon Dioxide 25 mmol/L (22-30) 12/23/19 05:33 Anion Gap 9 (5-19) 12/23/19 05:33 BUN 16 mg/dL (7-20) 12/23/19 05:33 Creatinine 0.76 mg/dL (0.52-1.25) 12/23/19 05:33 Est GFR ( Amer) > 60 (>60) 12/23/19 05:33 Est GFR (Non-Af Amer) Cancelled 12/20/19 12:40 Est GFR (MDRD) Non-Af > 60 (>60) 12/23/19 05:33 Glucose 122 mg/dL (75-110) H 12/23/19 05:33 Serum Osmolality 261 mOsm/kg (275-301) L 12/21/19 06:00 Calcium 9.4 mg/dL (8.4-10.2) 12/23/19 05:33 Magnesium 2.3 mg/dL (1.6-2.3) 12/20/19 12:40 Total Bilirubin 0.6 mg/dL (0.2-1.3) 12/23/19 05:33 Direct Bilirubin 0.4 mg/dL (0.0-0.4) 12/23/19 05:33 Neonat Total Bilirubin Not Reportable 12/23/19 05:33 Neonat Direct Bilirubin Not Reportable 12/23/19 05:33 Neonat Indirect Bili Not Reportable 12/23/19 05:33 AST 41 U/L (17-59) 12/23/19 05:33 ALT 53 U/L (<50) 12/23/19 05:33 Alkaline Phosphatase 65 U/L (38-126) 12/23/19 05:33 Troponin I 0.036 ng/mL 12/20/19 12:40 Total Protein 7.3 g/dL (6.3-8.2) 12/23/19 05:33 Albumin 3.6 g/dL (3.5-5.0) 12/23/19 05:33 EGFR Cancelled 12/20/19 12:40 TSH 5.84 uIU/mL (0.47-4.68) H 12/23/19 05:33 Free T4 0.92 ng/dL (0.78-2.19) 12/23/19 05:33 Free T3 pg/mL 2.41 pg/mL (2.77-5.27) L 12/23/19 05:33 Prolactin 28.6 ng/mL (3.7-17.9) H 12/20/19 12:40 Urine Color STRAW 12/20/19 14:03 Urine Appearance CLEAR 12/20/19 14:03 Urine pH 6.0 (5.0-9.0) 12/20/19 14:03 Ur Specific [place] 1.013 12/20/19 14:03 Urine Protein NEGATIVE mg/dL (NEGATIVE) 12/20/19 14:03 Urine Glucose (UA) NEGATIVE mg/dL (NEGATIVE) 12/20/19 14:03 Urine Ketones NEGATIVE mg/dL (NEGATIVE) 12/20/19 14:03 Urine Blood NEGATIVE (NEGATIVE) 12/20/19 14:03 Urine Nitrite (Reflex) NEGATIVE (NEGATIVE) 12/20/19 14:03 Urine Bilirubin NEGATIVE (NEGATIVE) 12/20/19 14:03 Urine Urobilinogen NEGATIVE mg/dL (<2.0) 12/20/19 14:03 Leukocyte Esterase Rfl NEGATIVE (NEGATIVE) 12/20/19 14:03 Urine RBC (Auto) 0 /HPF 12/20/19 14:03 Urine WBC (Reflex) < 1 /HPF 12/20/19 14:03 Squamous Epi Cells Auto <1 /HPF 12/20/19 14:03 Urine Mucus (Auto) RARE /LPF 12/20/19 14:03 Urine Osmolality 626 mOsm/kg (300-900) 12/20/19 14:03 Urine Sodium 242 mmol/L (30-90) H 12/21/19 12:00 Urine Ascorbic Acid NEGATIVE (NEGATIVE) 12/20/19 14:03 Urine Opiates Screen NEGATIVE 12/20/19 14:03 Urine Methadone Screen NEGATIVE 12/20/19 14:03 Ur Barbiturates Screen NEGATIVE 12/20/19 14:03 Ur Phencyclidine Scrn NEGATIVE 12/20/19 14:03 Ur Amphetamines Screen NEGATIVE 12/20/19 14:03 U Benzodiazepines Scrn NEGATIVE 12/20/19 14:03 Urine Cocaine Screen NEGATIVE 12/20/19 14:03 U Marijuana (THC) Screen UNCONFIRMED POSITIVE 12/20/19 14:03 Serum Alcohol < 10 mg/dL (NONE DETECTED) 12/20/19 12:40 Slides for Path Review Cancelled 12/21/19 06:00 12/20/19 12:40 Troponin I 0.036 Impressions: Head CT 12/20/19 14:30 IMPRESSION: Small right occipital scalp contusion. No acute intracranial findings or calvarial fracture. EVIDENCE OF ACUTE STROKE: NO. Chest X-Ray 12/20/19 14:31 IMPRESSION: No acute pulmonary findings. Head MRI 12/21/19 00:00 IMPRESSION: NORMAL MRI OF THE BRAIN WITHOUT AND WITH INTRAVENOUS GADOLINIUM CONTRAST. EVIDENCE OF ACUTE STROKE: NO. Plan Goals: Patient has an appt. with neurologist in [place] Stroke Is this a Stroke Patient?: No Acute Heart Failure - Is this a Heart Failure Patient?: No
== END 2019-12-23 11:30 | disposition home or self-care (01) ==
LOC: ER 11:57 → EH 16:11 → INTOOBSV 16:11 → 3S 17:42
PROVIDERS: ADMIT Family Medicine; ATTEND Family Medicine
DX: G40.89 Other seizures (principal); Z78.1 Physical restraint status; G61.81 Chronic inflammatory demyelinating polyneuritis; I10 Essential (primary) hypertension; E03.9 Hypothyroidism, unspecified; E87.1 Hypo-osmolality and hyponatremia; R41.0 Disorientation, unspecified; R45.1 Restlessness and agitation; S00.83XA Contusion of other part of head, initial encounter; X58.XXXA Exposure to other specified factors, initial encounter; Z79.52 Long term (current) use of systemic steroids; Z79.899 Other long term (current) drug therapy
CPT/HCPCS: 93005; 99291; 96372; 96375; 96365; 36415 ×4; 84439; 80307 ×2; 83735; 83930; 84443 ×2; 83935; 84300; 85025 ×2; 85027; 80048 ×2; 80053 ×2; 81001; 84484; 84481; 84146; 70553; 71045; 70450; 93010; G0378 ×5; A9576; J1561; J7500 ×3; J3490 ×2; J1630; J2060; J7512 ×3; J2405; J3480; J7030 ×2; J1953